=== PATIENT | male | born 1960 | race Two or more races ===

== ENCOUNTER 2017-03-03 16:28 | Emergency (ER) | payer OTHER, MEDICAID ==
[~2017-03-03] VITALS: Ht 167.6 cm; Wt 85.7 kg
[~2017-03-03 16:28] MED LIST: GLIP-116 PO; INSLANTI SC; MAGN400T23 PO; METF100097 PO; VITA50003 PO
[2017-03-03 17:45] LABS: Basophils # (auto) 0 uL; Basophils % (auto) 0.6 % (0.0-2.0); CONDITION Y; Eosinophils # (auto) 0.1 uL; Eosinophils % (auto) 1.3 % (0.0-7.0); Hematocrit 42.8 % (41.0-53.0); Hemoglobin 14.4 g/dL (13.5-17.5); Lymphocytes # (auto) 2.8 uL; Lymphocytes % (auto) 35.3 % (10.0-50.0); Mean Corpuscular Hemoglobin 28.8 pg (28.0-32.0); Mean Corpuscular Hgb Conc. 33.8 g/dL (32.0-36.0); Mean Corpuscular Volume 85.4 fL (80.0-100.0); Mean Platelet Volume 9.1 fL (7.4-10.4); Monocytes # (auto) 0.5 uL; Monocytes % (auto) 6.7 % (0.0-12.0); Neutrophils # (auto) 4.4 uL; Neutrophils % (auto) 56.1 % (37.0-80.0); Platelet Count (auto) 221 10^3/uL (140-450); Red Cell Distribution Width 14.1 % (11.6-16.0); White Blood Cell 7.9 10^3/uL (4.4-10.8)
[2017-03-03 18:02] LABS: Albumin 3.7 g/dL (3.4-5.0); BUN/Creatinine Ratio 17.4; Bilirubin, Total 0.2 mg/dL (0.2-1.0); Calcium 9.1 mg/dL (8.5-10.1); Total Protein 7.2 g/dL (6.4-8.2)
[2017-03-03 18:04] LABS: Potassium 4.2 mmol/L (3.5-5.1)
[2017-03-04 02:23] VITALS: BP 131/77
[2017-03-04] MEDS ORDERED: InsuLIN REG 1unit/0.01ml Soln (100units/ml) IV ONE (04:15)
== END 2017-03-04 04:52 | disposition home or self-care (01) ==
LOC: ER 16:31
DX: E11.65 Type 2 diabetes mellitus with hyperglycemia (principal); Z79.4 Long term (current) use of insulin
CPT/HCPCS: 36415; 80053; 82962; 85025; 96374; 99284; J1815

== ENCOUNTER 2020-01-17 08:47 | Emergency (ER) | payer MEDICAID, OTHER ==
[~2020-01-17] VITALS: Ht 157.5 cm; Wt 83.9 kg
[~2020-01-17 08:47] MED LIST changes: -GLIP-116 PO; +GLIP10TA9 PO
[2020-01-17 09:54] LABS: Albumin 3.6 g/dL (3.4-5.0); Anion Gap 8 (5-15); Basophils # (auto) 0 10 ^3/uL (0-0.2); Basophils % (auto) 0.5 % (0.0-2.0); Calcium 8.8 mg/dL (8.5-10.1); Carbon Dioxide 22 mmol/L (21-32); Chloride 107 mmol/L (98-107); Eosinophils # (auto) 0.1 10 ^3/uL (0-0.8); Eosinophils % (auto) 0.9 % (0.0-7.0); Glucose 347 mg/dL (74-106); Hematocrit 45.2 % (41.0-53.0); Lymphocytes # (auto) 1.7 10 ^3/uL (0.4-5.4); Lymphocytes % (auto) 22.7 % (10.0-50.0); Mean Corpuscular Hemoglobin 28.9 pg (28.0-32.0); Mean Corpuscular Hgb Conc. 33.2 g/dL (32.0-36.0); Mean Corpuscular Volume 87.3 fL (80.0-100.0); Monocytes # (auto) 0.5 10 ^3/uL (0-1.3); Monocytes % (auto) 7.3 % (0.0-12.0); Neutrophils # (auto) 5.2 10 ^3/uL (1.6-8.6); Neutrophils % (auto) 68.6 % (37.0-80.0); Platelet Count (auto) 214 10^3/uL (140-450); Potassium 4.1 mmol/L (3.5-5.1); Red Blood Cells 5.18 10^6/uL (4.5-5.90); Red Cell Distribution Width 13.9 % (11.8-14.3); Sodium 137 mmol/L (136-145); White Blood Cell 7.5 10^3/uL (4.4-10.8)
[2020-01-17 10:03] LABS: Alanine Aminotransferase 25 U/L (16-61); Alkaline Phosphatase 104 U/L (45-117); Aspartate Aminotransferase 12 U/L (15-37); BUN/Creatinine Ratio 20.3; Bilirubin, Total 0.6 mg/dL (0.2-1.0); Blood Urea Nitrogen 14 mg/dL (7-18); GFR African American 151 mL/min; GFR Non-African American 125 mL/min; Total Protein 7.1 g/dL (6.4-8.2)
[2020-01-17 12:15] VITALS: BP 127/80
== END 2020-01-17 13:38 | disposition home or self-care (01) ==
LOC: EDBD 08:47 → ER 08:47
DX: S62.637A Displaced fracture of distal phalanx of left little finger, initial encounter for closed fracture (principal); E11.65 Type 2 diabetes mellitus with hyperglycemia; R06.02 Shortness of breath; R07.89 Other chest pain; X58.XXXA Exposure to other specified factors, initial encounter; Y93.89 Activity, other specified; Y92.89 Other specified places as the place of occurrence of the external cause; Y99.8 Other external cause status
CPT/HCPCS: 29130; 36415; 71045; 73030; 73060; 73140; 73200; 80053; 84484; 85025; 93005

== ENCOUNTER 2025-07-18 15:05 | Emergency (ER) | payer OTHER ==
[~2025-07-18] VITALS: Ht 167.6 cm; Wt 90.9 kg
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
[2025-07-18 19:08] VITALS: BP 150/80; PULSE 67; RESP 15; TEMP 98.9; O2SAT 98
== END 2025-07-18 19:15 | disposition home or self-care (01) ==
LOC: ER 15:05 → EDUNIT# 15:05 → EDBD 15:05 → ER 19:14
DX: S16.1XXA Strain of muscle, fascia and tendon at neck level, initial encounter (principal); M79.651 Pain in right thigh; E11.9 Type 2 diabetes mellitus without complications; Z79.84 Long term (current) use of oral hypoglycemic drugs; Z79.899 Other long term (current) drug therapy; Z98.890 Other specified postprocedural states; V43.52XA Car driver injured in collision with other type car in traffic accident, initial encounter; Y93.I9 Activity, other involving external motion; Y92.488 Other paved roadways as the place of occurrence of the external cause; Y99.8 Other external cause status
CPT/HCPCS: 72040; 73700